=== PATIENT | male | born 2000 | race Hispanic/Latino ===

== ENCOUNTER 2018-04-21 22:25 | Emergency (ER) | payer MEDICAID, OTHER | END 2018-04-22 00:17 | disposition home or self-care (01) | LOC: EDH 22:25 | DX: S83.91XA Sprain of unspecified site of right knee, initial encounter (principal); X50.1XXA Overexertion from prolonged static or awkward postures, initial encounter; Y93.66 Activity, soccer; Y92.39 Other specified sports and athletic area as the place of occurrence of the external cause; Y99.8 Other external cause status | CPT/HCPCS: 73562 ==

== ENCOUNTER 2018-10-10 19:35 | Emergency (ER) | payer OTHER, SELFPAY | END 2018-10-10 20:07 | disposition home or self-care (01) | LOC: EDH 19:35 | DX: G89.29 Other chronic pain (principal); M25.561 Pain in right knee | CPT/HCPCS: 99281 ==